=== PATIENT | female | born 1935 | race Caucasian/White ===

== ENCOUNTER 2018-08-28 12:49 | Observation (INO) | payer MEDICARE ==
[~2018-08-28] VITALS: Ht 160 cm; Wt 50.6 kg
--- NOTE | 2018-08-28 13:07 | NUR ---
WHEELCHAIR TO ER ROOM 3, TO BED
[2018-08-28] MEDS ORDERED: LEVOTHYROXIN75 MCG PO (13:16)
[2018-08-28] MEDS ORDERED: METOPROL TAR25 MG PO (13:16)
[2018-08-28] MEDS ORDERED: GNP RED YEAST600 MG PO (13:17)
[2018-08-28] MEDS ORDERED: RETAINE CMC 0.5% OU (13:18)
[2018-08-28] MEDS ORDERED: VITAMIN D3400 UNI2 PO (13:37)
[2018-08-28] MEDS ORDERED: OMEGA 31000 MG PO (13:38)
--- NOTE | 2018-08-28 13:48 | NUR ---
EDP HAS USED DERMABOND TO CLOSE 1X2 CM LACERATION TO LEFT EYEBROW, TOLERATED WELL. PT TO CT SCAN NOW. PT AGREEABLE TO ADMIT TO OBSERVE.
--- NOTE | 2018-08-28 14:22 | NUR ---
IV ESTABLISHED, BLOOD DRAWN, BLANKET PROVIDED.
[2018-08-28 14:39] LABS: HEMATOCRIT 43.6 % (37.0-47.0); HEMOGLOBIN 14.6 g/dl (12.0-16.0); IMMATURE GRANULOCYTES 0.6 % (0.0-5.0); MEAN CELL VOLUME 93.4 fL CALC (80.0-100.0); MEAN CORPUSCULAR HGB 31.3 pG CALC (26.0-32.0); MEAN CORPUSCULAR HGB CONC 33.5 g/L CALC (32.0-36.0); NEUT# 4.49 thou/uL (2.00-7.15); RED BLOOD COUNT 4.67 mill/uL (4.20-5.60); RED CELL DISTRI WIDTH 14.9 % (11.5-15.5)
[2018-08-28 15:45] LABS: ANION GAP 18 (6-22 (CALC)); BUN 21 mg/dL (8-23); BUN/CREATININE RATIO 32 (12-20 (CALC)); CARBON DIOXIDE 22 mmol/l (22-30); CHLORIDE 102 mmol/l (95-108); CREATININE 0.7 mg/dL (0.5-1.0); GFR > 60 ML/MIN (>=60 (CALC)); GFR FOR AFR.AMER. > 60 ML/MIN (>=60 (CALC)); POTASSIUM 4.4 mmol/l (3.5-5.1); SODIUM 137 mmol/l (137-146)
[2018-08-28 15:53] LABS: PROTHROMBIN TIME 10.1 SECONDS (9.0-12.5)
[2018-08-28] MEDS ORDERED: ELIQUIS5 MG PO (16:07)
[2018-08-28] MEDS ORDERED: AZOPT1 % OU (16:08)
[2018-08-28] MEDS ORDERED: PAZEO0.7 % OU (16:08)
[2018-08-28] MEDS ORDERED: BETIMOL0.5 % OU (16:09)
--- NOTE | 2018-08-28 16:32 | NUR ---
PT AND DAUGHTER AWARE OF PENDING ADMISSION. PT HERSELF HAS BEEN SYMPTOM-FREE, RESTING IN THE STRETCHER IN NO DISTRESS.
--- NOTE | 2018-08-28 16:42 | NUR ---
REPORT CALLED TO YAMEL, TO ROOM SOON. DAUGHTER HOME.
--- NOTE | 2018-08-28 17:25 | NUR ---
PT TRANSPORTED TO [facility] VIA STRETCHER ACCOMPAINED BY GWYN. PT AMBULATED FROM STRETCHER TO BED W/ ASSISTANCE. VS DONE. PT A/O X3. FORGETFUL AT TIMES. RESP EVEN AND UNLABORED. LUNG SOUNDS CLEAR. TELE IN PLACE. BOWEL SOUNDS ACTIVE X3. STRONG RADIAL AND PEDAL PULSES. #22 RFA SL. FLUSHED AND PATENT. SITE APPEARS HEALTHY. PT HAS A LT UPPER EYE CONTUSION FROM FALL AT HOME. DERMABOND INTACT. PT DENIES ANY PAIN OR NEEDS. POC DISCUSSED. SAFETY PRECAUTIONS IN PLACE. BED ALARM ON. CALL LIGHT IN REACH. WILL CONTINUE TO MONITOR.
[2018-08-28 17:28] VITALS: BP 162/93
--- NOTE | 2018-08-28 17:34 | NUR ---
PT TO ROOM 291 WITHOUT INCIDENT.
[2018-08-28 19:00] VITALS: BP 165/83
--- NOTE | 2018-08-28 19:00 | NUR ---
PT LYING IN BED WATCHING TELEVISION. NO C/O PAIN OR NEEDS. TELE IN PLACE. CALL LIGHT IN REACH. BED ALARM ON. WILL CONTINUE TO MONITOR.
[2018-08-28 19:23] VITALS: BP 130/80
--- NOTE | 2018-08-28 19:38 | NUR ---
REPORT RECEIVED FROM DAY NURSE. PT IS SLEEPING AT THIS TIME. NO S/O DISTRESS NOTED. CALL LIGHT AT BEDSIDE W/IN REACH. WILL CONTINUE TO MONITOR.
--- NOTE | 2018-08-28 20:37 | NUR ---
PT MEDICATED AND ASSESSED, NEURO'S ARE INTACT, STRONG EQUAL DRY BOSS, GOOD ROM, PT LOCX4 AND ABLE TO ANSWER ALL QUESTIONS APPROPRIATELY, LEFT PUPIL SLIGHTLY LARGER THAN RIGHT/POST CAT REMOVAL REPORTED. LUNG SOUNDS ARE CLEAR, HEART SOUNDS AFIB AUSCULTATED, ABD SOFT NON-TENDER W/ACTIVE BOWEL SOUNDS. WILL CONTINUE TO MONITOR, CALL LIGHT IN HAND AND PT ENCOURAGED TO CALL IF ANY NEEDS ARISE.
--- NOTE | 2018-08-28 23:46 | NUR ---
PT SLEEPING AT THIS TIME. NO S/O DISTRESS NOTED. CALL LIGHT AT BEDSIDE.
[2018-08-29 00:56] VITALS: BP 109/66
[2018-08-29 04:16] VITALS: BP 136/85
[2018-08-29 05:07] LABS: HEMATOCRIT 39.1 % (37.0-47.0); HEMOGLOBIN 13.2 g/dl (12.0-16.0); IMMATURE GRANULOCYTES 0.3 % (0.0-5.0); MEAN CORPUSCULAR HGB 31.1 pG CALC (26.0-32.0); MEAN CORPUSCULAR HGB CONC 33.8 g/L CALC (32.0-36.0); NEUT# 3.14 thou/uL (2.00-7.15); RED BLOOD COUNT 4.25 mill/uL (4.20-5.60); RED CELL DISTRI WIDTH 14.7 % (11.5-15.5)
[2018-08-29 05:35] LABS: ALBUMIN 3.5 g/dL (3.2-5.0); ALKALINE PHOSPHATASE 97 u/l (38-126); ANION GAP 13 (6-22 (CALC)); BUN 17 mg/dL (8-23); BUN/CREATININE RATIO 25 (12-20 (CALC)); CARBON DIOXIDE 23 mmol/l (22-30); CHLORIDE 104 mmol/l (95-108); CREATININE 0.7 mg/dL (0.5-1.0); GFR > 60 ML/MIN (>=60 (CALC)); GFR FOR AFR.AMER. > 60 ML/MIN (>=60 (CALC)); MAGNESIUM 1.7 mg/dL (1.6-2.3); POTASSIUM 4.3 mmol/l (3.5-5.1); SGOT/AST 24 u/l (9-36); SODIUM 135 mmol/l (137-146); TOTAL PROTEIN 6.2 g/dL (6.3-8.2)
--- NOTE | 2018-08-29 07:20 | NUR ---
PT REPORT RECIEVED FROM MADDY MELTON. PT RESTING. NO S/S OF DISTRESS. CALL LIGHT IN REACH. WILL CONTINUE TO MONITOR.
[2018-08-29 09:45] VITALS: BP 104/74
--- NOTE | 2018-08-29 09:45 | NUR ---
PT A/O X3 W/ FORGETFULNESS. LT UPPER EYE CONTUSION FROM FALL; DERMABOND INTACT. SPEECH IS CLEAR. RESP EVEN AND UNLABORED. LUNG SOUNDS CLEAR. TELE IN PLACE. BOWEL SOUNDS ACTIVE X4. STRONG RADIAL AND PEDAL PULSES. #22 RFA SL. FLUSHED AND PATENT. SITE APPEARS HEALTHY. PT DENIES ANY PAIN OR NEEDS. POC DISCUSSED. SAFETY PRECAUTIONS IN PLACE. BED ALARM ON. CALL LIGHT IN REACH. WILL CONTINUE TO MONITOR.
[2018-08-29 11:10] VITALS: BP 132/78
--- NOTE | 2018-08-29 12:30 | NUR ---
D/C INSTRUCTIONS DISCUSSED W/ PT. PT STATES UNDERSTANDING. IV REMOVED. CATHETER INTACT.PT AWAITING VOLUNTEER TO BE TRANSPORTED DOWNSTAIRS.
--- NOTE | 2018-08-29 12:33 | NUR ---
Discharge instructions given. Patient verbalizes understanding of same. Discharged in stable condition via Wheelchair to Home with family. All belongings sent with pt.
== END 2018-08-29 11:30 | disposition home or self-care (01) ==
LOC: ED 12:49 → ED-I 16:05 → ED 16:18 → MS2 16:19
PROVIDERS: Family Medicine; ADMIT Internal Medicine Nephrology; ATTEND Internal Medicine Nephrology
PROC: 0HQ1XZZ Repair Face Skin, External Approach (ICD-10-PCS; principal; 2018-08-28)
DX: S01.112A Laceration without foreign body of left eyelid and periocular area, initial encounter (principal); I48.0 Paroxysmal atrial fibrillation; I10 Essential (primary) hypertension; W01.0XXA Fall on same level from slipping, tripping and stumbling without subsequent striking against object, initial encounter; Z79.01 Long term (current) use of anticoagulants; Z96.653 Presence of artificial knee joint, bilateral